=== PATIENT | male | born 1975 | race Caucasian/White ===

== ENCOUNTER → 2018-09-07 | Outpatient (CLI) | payer BC, OTHER ==
[~2018-09-07] MED LIST: NAPR550T PO
== END ==
LOC: RAD 11:31
PROVIDERS: ATTEND Nurse Practitioner Community Health
DX: M48.061 Spinal stenosis, lumbar region without neurogenic claudication (principal); Z53.8 Procedure and treatment not carried out for other reasons

== ENCOUNTER 2020-01-23 15:14 | Emergency (ER) | payer SELFPAY ==
--- NOTE | 2020-01-23 15:25 | ED Chest Pain ---
General Stated Complaint: CHEST PAIN;HIGH BP Source: patient Exam Limitations: no limitations History of Present Illness Date Seen by Provider: Jan 23, 2020 Time Seen by Provider: 15:23 Initial Comments to ER with lower central chest pain described as pressure rated at 8 out of 10 that began one hour ago when sitting down into his recliner. No shortness of breath no diaphoresis no nausea. No personal history of heart disease though he does have hypercholesterolemia and hypertension. His Toprol dose was doubled about 1 month ago but he states it doesn't seem to have helped reduce his blood pressure. He denies fevers chills cough or shortness of breath. He does smoke 1 pack of cigarettes per day. Timing/Duration: changing over time Severity/Quality: moderate Location: central Radiation: no radiation Activities at Onset: none ASA po BOAT HAND: No NTG SL BOAT HAND: No Allergies and Home Medications Allergies Coded Allergies: No Known Drug Allergies (Unverified , 01/23/20) Home Medications Amlodipine Besylate 5 Mg Tablet, 5 MG PO DAILY Prescribed by: BRENNA RIBEIRO on 01/23/20 1748 Naproxen Sodium 550 Mg Tablet, 550 MG PO BID PRN Prescribed by: DOROTHY GASTON on 11/12/10 2331 Patient Home Medication List Home Medication List Reviewed: Yes Review of Systems Review of Systems Constitutional: see HPI EENTM: No Symptoms Reported Respiratory: No Symptoms Reported Cardiovascular: See HPI, Chest Pain Gastrointestinal: No Symptoms Reported Genitourinary: No Symptoms Reported Musculoskeletal: no symptoms reported Skin: no symptoms reported Endocrine: No Symptoms Reported Past Czuifbf-Iamlvy-Bacdig Hx Patient Social History Recent Foreign Travel: No Contact w/Someone Who Travel: No Physical Exam Vital Signs Vital Signs - First Documented 01/23/20 15:16 Temp 35.5 Pulse 104 Resp 20 B/P (MAP) 164/115 (131) Pulse Ox 98 O2 Delivery Room Air Capillary Refill : Height, Weight, BMI Height: '" Weight: lbs. oz. kg; BMI Method: General Appearance: No Apparent Distress, WD/WN, Obese, Other (alert and oriented very pleasant) Neck: Full Range of Motion, Normal Inspection Respiratory: No Accessory Muscle Use, No Respiratory Distress Cardiovascular: Regular Rate, Rhythm Gastrointestinal: Normal Bowel Sounds, Non Tender, Soft Extremity: Normal Capillary Refill, Normal Inspection Neurologic/Psychiatric: Alert, Oriented x3 Skin: Normal Color, Warm/Dry Progress/Results/Core Measures Results/Orders Lab Results Laboratory Tests Test 01/23/20 15:22 01/23/20 17:19 Range/Units White Blood Count 10.5 4.3-11.0 10^3/uL Red Blood Count 4.94 4.30-5.52 10^6/uL Hemoglobin 15.1 13.3-17.7 g/dL Hematocrit 46 40-54 % Mean Corpuscular Volume 92 80-99 fL Mean Corpuscular Hemoglobin 31 25-34 pg Mean Corpuscular Hemoglobin Concent 33 32-36 g/dL Red Cell Distribution Width 14.0 10.0-14.5 % Platelet Count 295 130-400 10^3/uL Mean Platelet Volume 10.3 9.0-12.2 fL Immature Granulocyte % (Auto) 0 % Neutrophils (%) (Auto) 57 42-75 % Lymphocytes (%) (Auto) 33 12-44 % Monocytes (%) (Auto) 8 0-12 % Eosinophils (%) (Auto) 1 0-10 % Basophils (%) (Auto) 1 0-10 % Neutrophils # (Auto) 6.0 1.8-7.8 10^3/uL Lymphocytes # (Auto) 3.5 1.0-4.0 10^3/uL Monocytes # (Auto) 0.9 0.0-1.0 10^3/uL Eosinophils # (Auto) 0.1 0.0-0.3 10^3/uL Basophils # (Auto) 0.1 0.0-0.1 10^3/uL Immature Granulocyte # (Auto) 0.0 0.0-0.1 10^3/uL Prothrombin Time 12.8 12.2-14.7 SEC INR Comment 0.9 0.8-1.4 Activated Partial Thromboplast Time 30 24-35 SEC Sodium Level 141 135-145 MMOL/L Potassium Level 3.5 L 3.6-5.0 MMOL/L Chloride Level 103 98-107 MMOL/L Carbon Dioxide Level 28 21-32 MMOL/L Anion Gap 10 5-14 MMOL/L Blood Urea Nitrogen 14 7-18 MG/DL Creatinine 1.24 0.60-1.30 MG/DL Estimat Glomerular Filtration Rate > 60 BUN/Creatinine Ratio 11 Glucose Level 104 70-105 MG/DL Calcium Level 9.2 8.5-10.1 MG/DL Corrected Calcium 8.8 8.5-10.1 MG/DL Magnesium Level 2.0 1.6-2.4 MG/DL Total Bilirubin 0.4 0.1-1.0 MG/DL Aspartate Amino Transf (AST/SGOT) 28 5-34 U/L Alanine Aminotransferase (ALT/SGPT) 27 0-55 U/L Alkaline Phosphatase 109 40-136 U/L Myoglobin 72.0 10.0-92.0 NG/ML Troponin I < 0.028 < 0.028 <0.028 NG/ML B-Type Natriuretic Peptide < 10.0 <100.0 PG/ML Total Protein 8.1 6.4-8.2 GM/DL Albumin 4.5 3.2-4.5 GM/DL My Orders Orders - BRENNA RIBEIRO APRN Cbc With Automated Diff (01/23/20 15:22) Magnesium (01/23/20 15:22) Chest 1 View, Ap/Pa Only (01/23/20 15:22) Ekg Tracing (01/23/20 15:22) Comprehensive Metabolic Panel (01/23/20 15:22) Myoglobin Serum (01/23/20 15:22) Protime With Inr (01/23/20 15:22) Partial Thromboplastin Time (01/23/20 15:22) O2 (01/23/20 15:22) Monitor-Rhythm Ecg Trace Only (01/23/20 15:22) Ed Iv/Invasive Line Start (01/23/20 15:22) BNP (01/23/20 15:22) Troponin I (01/23/20 15:22) Aspirin Chewable Tablet (Baby Aspirin Ch (01/23/20 15:30) Nitroglycerin 0.4 Mg Btl 25's (Nitrostat (01/23/20 15:30) Lorazepam Injection (Ativan Injection) (01/23/20 15:45) Troponin I (01/23/20 17:22) Medications Given in ED Vital Signs/I&O 01/23/20 01/23/20 01/23/20 15:16 15:16 17:55 Temp 35.5 36.0 Pulse 104 96 Resp 20 17 B/P (MAP) 164/115 (131) 143/100 (131) Pulse Ox 98 99 O2 Delivery Room Air Room Air Room Air Departure Communication (Admissions) 1525-he does have risk factors including obesity hypertension hypercholesterolemia and smoking. Aspirin nitroglycerin ordered. Rates pressure of 10 currently. EKG is without ST segment changes. 1615-Recommended covid test based on cxr results. Refused test, reported to RN that he doesnt believe in it and it might impact his ability to go vote. 1747-Patient has been symptom-free since the administration of lorazepam and continues to be symptom free at this time. We'll discharge to home. He states that his blood pressure has been elevated for the past month despite doubling his Toprol dosage. Impression Primary Impression: Chest pain Qualified Codes: R07.9 - Chest pain, unspecified Additional Impression: High blood pressure Disposition: HOME, SELF-CARE Condition: Stable Departure-Patient Inst. Decision time for Depature: 17:46 Referrals: RALPH ARMANDO (PCP/Family) Primary Care Physician Patient Instructions: Chest Pain Add. Discharge Instructions: 1. Return to ER for any concerns 2. Follow-up with your doctor on Sunday for recheck and further evaluation. Blood pressure medication as directed. Return to ER for any recurrent or worsening symptoms in the meantime. Scripts Amlodipine Besylate (Norvasc) 5 Mg Tablet 5 MG PO DAILY, #20 TAB Prov: BRENNA RIBEIRO APRN 01/23/20 BRENNA RIBEIRO APRN Jan 23, 2020 15:25
[2020-01-23] MEDS: NITROGLYCERIN 0.4 MG SL TABS BTL 25'S SL PRN ×2 (15:28→15:34)
[2020-01-23] MEDS ORDERED: ASPIRIN 81 MG CHEW (CHILDREN'S ASA) PO ONE (15:30)
--- NOTE | 2020-01-23 15:40 | NUR ---
1528 Nitro #1 adm. Initial BP 138/77 Pain 8/10 1533 BP 120/75 Pain 5/10 Nitro #2 adm. 1539 BP 114/85 Pain 0/10
--- NOTE | 2020-01-23 15:43 | Diagnostic Imaging Report ---
INDICATION: Chest pain. EXAMINATION: Single view of the chest was obtained. FINDINGS: No focal consolidation found. There is some prominence of the lung markings which may be chronic, Heart size is upper limits. No effusion or pneumothorax. IMPRESSION: Interstitial opacities may be chronic, otherwise negative. Dictated by: Dictated on workstation # [id number]
[2020-01-23] MEDS ORDERED: LORazepam INJ 2 MG/ML (ATIVAN) VIAL IVP PRN (15:45)
[2020-01-23 15:57] LABS: ALBUMIN 4.5 GM/DL (3.2-4.5); CHLORIDE 103 MMOL/L (98-107); INR 0.9 (0.8-1.4); POTASSIUM 3.5 MMOL/L (3.6-5.0); PROTHROMBIN TIME PATIENT 12.8 SEC (12.2-14.7); SODIUM 141 MMOL/L (135-145)
[2020-01-23 15:59] LABS: CALCIUM 9.2 MG/DL (8.5-10.1)
[2020-01-23 16:00] LABS: GLUCOSE 104 MG/DL (70-105); TOTAL PROTEIN 8.1 GM/DL (6.4-8.2)
[2020-01-23 16:01] LABS: BILIRUBIN,TOTAL 0.4 MG/DL (0.1-1.0); CARBON DIOXIDE 28 MMOL/L (21-32)
[2020-01-23 16:02] LABS: BASOPHILS # (AUTO) 0.1 10^3/uL (0.0-0.1); BASOPHILS % (AUTO) 1 % (0-10); EOSINOPHILS # (AUTO) 0.1 10^3/uL (0.0-0.3); EOSINOPHILS % (AUTO) 1 % (0-10); HEMATOCRIT 46 % (40-54); HEMOGLOBIN 15.1 g/dL (13.3-17.7); LYMPHOCYTES # (AUTO) 3.5 10^3/uL (1.0-4.0); LYMPHOCYTES % (AUTO) 33 % (12-44); MEAN CORPUSCULAR HEMOGLOBIN 31 pg (25-34); MEAN CORPUSCULAR HGB CONC 33 g/dL (32-36); MEAN CORPUSCULAR VOLUME 92 fL (80-99); MEAN PLATELET VOLUME 10.3 fL (9.0-12.2); MONOCYTES # (AUTO) 0.9 10^3/uL (0.0-1.0); MONOCYTES % (AUTO) 8 % (0-12); NEUTROPHILS % (AUTO) 57 % (42-75); PLATELET COUNT 295 10^3/uL (130-400); WHITE BLOOD COUNT 10.5 10^3/uL (4.3-11.0)
[2020-01-23 16:03] LABS: ALKALINE PHOSPHATASE 109 U/L (40-136); CREATININE SERUM 1.24 MG/DL (0.60-1.30); GFR ESTIMATED > 60
[2020-01-23 16:04] LABS: BUN/CREATININE RATIO 11
[2020-01-23 16:06] LABS: ALANINE AMINOTRANSFERASE 27 U/L (0-55)
--- NOTE | 2020-01-23 16:30 | NUR ---
Pt refused COVID-19 swab stating, "I'm sorry, I just don't want to be swabbed." Provider notified.
[2020-01-23] MEDS ORDERED: AMLO5TAB4 PO (17:48)
[2020-01-23 17:55] VITALS: BP 143/100
== END 2020-01-23 17:55 | disposition home or self-care (01) ==
LOC: EDUNIT# 15:14 → ER 15:15
DX: R07.9 Chest pain, unspecified (principal); I10 Essential (primary) hypertension; E66.9 Obesity, unspecified; F17.210 Nicotine dependence, cigarettes, uncomplicated
CPT/HCPCS: 36415; 71045; 80053; 83735; 83874; 83880; 84484; 85025; 85610; 85730; 93005; 93041

== ENCOUNTER → 2020-12-09 | Outpatient (CLI) | payer BC ==
[~2020-12-09] MED LIST changes: +AMLO5TAB4 PO
--- NOTE | 2020-12-09 11:00 | Diagnostic Imaging Report ---
INDICATION: Neck pain, right upper extremity radiculopathy. Neck is held in mild flexion. There is likely some slight positional anterolisthesis of C4 on C5 of 1 mm. There is lower cervical spondylosis with disc space narrowing, endplate sclerosis and osteophytes greatest at C5-C6 and C6-C7 levels. Odontoid intact. No fracture identified. IMPRESSION: Lower cervical spondylosis. Neck held in flexion likely accounts for trace anterolisthesis of C4 on 5. No acute-appearing abnormality. Dictated by: Dictated on workstation # [id number]
--- NOTE | 2020-12-09 11:25 | Diagnostic Imaging Report ---
INDICATION: Back pain EXAM: Thoracic spine AP and lateral views of the thoracic spine show normal vertebral body height and alignment. There is mild degenerative disc changes in the thoracic spine. IMPRESSION: Minimal degenerative changes in the mid thoracic spine. No acute abnormality is seen. Dictated by: Dictated on workstation # [id number]
== END ==
LOC: RAD 10:12
PROVIDERS: ATTEND Family Medicine
DX: M47.23 Other spondylosis with radiculopathy, cervicothoracic region (principal); M43.12 Spondylolisthesis, cervical region
CPT/HCPCS: 72040; 72072

== ENCOUNTER 2021-01-05 08:36 | Outpatient (RCR) | payer BC | END 2021-03-13 | disposition home or self-care (01) | PROVIDERS: ATTEND Family Medicine | DX: M54.12 Radiculopathy, cervical region (principal) ==

== ENCOUNTER → 2021-08-25 | Outpatient (CLI) | payer BC | LOC: CARD 14:27 | PROVIDERS: ATTEND Family Medicine | DX: I51.7 Cardiomegaly (principal) | CPT/HCPCS: 93306 ==

== ENCOUNTER → 2021-10-10 | Outpatient (CLI) | payer BC ==
[2021-10-10 13:46] LABS: POTASSIUM 3.8 MMOL/L (3.6-5.0)
[2021-10-10 13:47] LABS: CALCIUM 9.4 MG/DL (8.5-10.1)
[2021-10-10 13:51] LABS: CREATININE SERUM 1.13 MG/DL (0.60-1.30)
== END ==
LOC: LAB 12:44
PROVIDERS: ATTEND Internal Medicine Cardiovascular Disease
DX: Z01.810 Encounter for preprocedural cardiovascular examination (principal); Z01.812 Encounter for preprocedural laboratory examination; I42.9 Cardiomyopathy, unspecified; I10 Essential (primary) hypertension; E78.2 Mixed hyperlipidemia; K21.9 Gastro-esophageal reflux disease without esophagitis; E66.9 Obesity, unspecified
CPT/HCPCS: 36415; 80048

== ENCOUNTER → 2021-11-17 | Outpatient (CLI) | payer BC ==
--- NOTE | 2021-11-17 13:20 | Diagnostic Imaging Report ---
INDICATION: Right knee pain. TIME OF EXAM: 9:56 AM FINDINGS: 3 views right knee were obtained. There is mild medial compartmental joint space narrowing. Lateral compartment and patellofemoral compartments are well-maintained. The articular surfaces are smooth. No fracture, dislocation or effusion is seen. IMPRESSION: Mild medial compartmental joint space narrowing. The study is otherwise unremarkable. Dictated by: Dictated on workstation # [id number]
== END ==
LOC: ORTHO 09:43
PROVIDERS: ATTEND Orthopaedic Surgery
DX: M25.561 Pain in right knee (principal); M25.861 Other specified joint disorders, right knee
CPT/HCPCS: 73562; G0463; 99203

== ENCOUNTER → 2021-12-01 | Outpatient (CLI) | payer BC ==
--- NOTE | 2021-12-01 13:20 | Diagnostic Imaging Report ---
Indication: Follow-up ortho assessment COMPARISON: None available. TECHNIQUE: 3 radiographs of the right shoulder dated 12/01/2021. FINDINGS: The acromioclavicular joint is unremarkable. No acute fracture or dislocation. Focal concavity is noted involving the superolateral aspect of the humeral head. Glenohumeral relationship is well-maintained. No suspicious radiopaque foreign body. IMPRESSION: Concavity involving the superior lateral humeral head is felt related to a Hill-Sachs deformity, likely from prior dislocation of the glenohumeral joint. No current dislocation or additional fracture identified on this examination. Dictated by: Dictated on workstation # [id number]
== END ==
LOC: ORTHO 09:24
PROVIDERS: ATTEND Orthopaedic Surgery
DX: M75.51 Bursitis of right shoulder (principal); I10 Essential (primary) hypertension; K21.9 Gastro-esophageal reflux disease without esophagitis; E78.2 Mixed hyperlipidemia; E66.9 Obesity, unspecified
CPT/HCPCS: 20610; 73030; G0463

== ENCOUNTER → 2022-01-12 | Outpatient (CLI) | payer BC ==
[~2022-01-12] MED LIST changes: +AMLO-250 PO; +ASPI-1238 PO; +ATOR40TA PO; +BACL10TA PO; +GABA300T24 PO; +LOSA100T57 PO; +LOSA50TA63 PO; +MELO15TA39 PO; +MTP100TCR PO; +NAPR-1071 PO; +NAPR-915 PO; +OMEP20TA56 PO; +PANT40TA52 PO; +TICA90TA PO
== END ==
LOC: ORTHO 02:15
PROVIDERS: ATTEND Orthopaedic Surgery
DX: I42.9 Cardiomyopathy, unspecified (principal); I25.10 Atherosclerotic heart disease of native coronary artery without angina pectoris; I10 Essential (primary) hypertension; E78.5 Hyperlipidemia, unspecified; K21.9 Gastro-esophageal reflux disease without esophagitis; E66.9 Obesity, unspecified; Z86.79 Personal history of other diseases of the circulatory system
CPT/HCPCS: 99213

== ENCOUNTER 2022-01-25 13:21 | Emergency (ER) | payer BC ==
[~2022-01-25] VITALS: Ht 180.3 cm; Wt 104.3 kg
[~2022-01-25 13:21] MED LIST changes: -AMLO-250 PO; -ASPI-1238 PO; -ATOR40TA PO; -BACL10TA PO; -GABA300T24 PO; -LOSA100T57 PO; -LOSA50TA63 PO; -MELO15TA39 PO; -MTP100TCR PO; -NAPR-1071 PO; -NAPR-915 PO; -OMEP20TA56 PO; -PANT40TA52 PO; -TICA90TA PO
--- NOTE | 2022-01-25 13:44 | ED Integumentary General ---
General Chief Complaint: Skin/Wound Problems Stated Complaint: RT ARM PAIN Nursing Triage Note: PT AMB TO [facility] 6 WITH COMPLAINT OF REDNESS, SWELLING, AND PAIN TO RIGHT INNER FOREARM. STATES HE DONATED PLASMA LAST WEEK. Source: patient Exam Limitations: no limitations History of Present Illness Date Seen by Provider: Jan 25, 2022 Time Seen by Provider: 13:22 Initial Comments This is a well-appearing 46-year-old male who presented to the ER via POV with spouse for complaints of redness and swelling of his right inner forearm. He states that he donates plasma twice a week, his last donation was 1 week ago Sunday. Over the last few days he has had increased redness and swelling to the area. This is medial to his IV site where he did the transfusion. Denies fever, chills, nausea, vomiting, abdominal pain. No history of DVTs or coagulation disorders. Allergies and Home Medications Allergies Coded Allergies: No Known Drug Allergies (Unverified , 01/23/20) Patient Home Medication List Amlodipine Besylate (Norvasc) 5 Mg Tablet, 5 MG PO DAILY Prescribed by: BRENNA RIBEIRO on 01/23/20 1748 Naproxen Sodium (Anaprox Ds) 550 Mg Tablet, 550 MG PO BID PRN Prescribed by: DOROTHY GASTON on 11/12/10 2331 Past Aglctpn-Hubxoo-Uhknnt Hx Patient Social History Tobacco Use?: No Use of E-Cig and/or Vaping dev: No Substance use?: No Alcohol Use?: No Pt feels they are or have been: No Seasonal Allergies Seasonal Allergies: No Past Medical History Surgeries: Yes (Ear, ) Orthopedic Respiratory: No Cardiac: Yes High Cholesterol, Hypertension Neurological: No Genitourinary: No Gastrointestinal: No Musculoskeletal: No Endocrine: No HEENT: No Cancer: No Psychosocial: No Integumentary: No Physical Exam Vital Signs Vital Signs - First Documented 01/25/22 13:26 Temp 36.8 Pulse 114 Resp 20 B/P (MAP) 130/103 (112) Pulse Ox 97 O2 Delivery Room Air Capillary Refill : Less Than 3 Seconds Progress/Results/Core Measures Results/Orders Lab Results Laboratory Tests Test 01/25/22 13:42 Range/Units White Blood Count 10.0 4.3-11.0 10^3/uL Red Blood Count 5.37 4.30-5.52 10^6/uL Hemoglobin 16.3 13.3-17.7 g/dL Hematocrit 49 40-54 % Mean Corpuscular Volume 92 80-99 fL Mean Corpuscular Hemoglobin 30 25-34 pg Mean Corpuscular Hemoglobin Concent 33 32-36 g/dL Red Cell Distribution Width 15.6 H 10.0-14.5 % Platelet Count 312 130-400 10^3/uL Mean Platelet Volume 9.6 9.0-12.2 fL Immature Granulocyte % (Auto) 0 % Neutrophils (%) (Auto) 57 42-75 % Lymphocytes (%) (Auto) 34 12-44 % Monocytes (%) (Auto) 8 0-12 % Eosinophils (%) (Auto) 0 0-10 % Basophils (%) (Auto) 1 0-10 % Neutrophils # (Auto) 5.7 1.8-7.8 10^3/uL Lymphocytes # (Auto) 3.4 1.0-4.0 10^3/uL Monocytes # (Auto) 0.8 0.0-1.0 10^3/uL Eosinophils # (Auto) 0.0 0.0-0.3 10^3/uL Basophils # (Auto) 0.1 0.0-0.1 10^3/uL Immature Granulocyte # (Auto) 0.0 0.0-0.1 10^3/uL Sodium Level 143 135-145 MMOL/L Potassium Level 3.6 3.6-5.0 MMOL/L Chloride Level 105 98-107 MMOL/L Carbon Dioxide Level 29 21-32 MMOL/L Anion Gap 9 5-14 MMOL/L Blood Urea Nitrogen 8 7-18 MG/DL Creatinine 1.16 0.60-1.30 MG/DL Estimat Glomerular Filtration Rate 78 BUN/Creatinine Ratio 7 Glucose Level 89 70-105 MG/DL Calcium Level 9.5 8.5-10.1 MG/DL Corrected Calcium 9.3 8.5-10.1 MG/DL Total Bilirubin 0.5 0.1-1.0 MG/DL Aspartate Amino Transf (AST/SGOT) 32 5-34 U/L Alanine Aminotransferase (ALT/SGPT) 31 0-55 U/L Alkaline Phosphatase 99 40-136 U/L C-Reactive Protein High Sensitivity 1.54 H 0.00-0.50 MG/DL Total Protein 7.9 6.4-8.2 GM/DL Albumin 4.3 3.2-4.5 GM/DL My Orders Orders - DIANDRA HERRERA RN ORTHOPEDIC Ed Iv/Invasive Line Start (01/25/22 13:40) Cbc With Automated Diff (01/25/22 13:40) Comprehensive Metabolic Panel (01/25/22 13:40) Hs C Reactive Protein (01/25/22 13:40) Us Venous Upper Ext Rt (01/25/22 13:40) Ketorolac Injection (Toradol Injection) (01/25/22 13:45) Medications Given in ED Current Medications Medications Dose Ordered Sig/Christiano Route Start Time Stop Time Status Last Admin Dose Admin Ketorolac Tromethamine 30 mg ONCE ONCE IVP 01/25/22 13:45 01/25/22 13:46 DC 01/25/22 13:47 30 MG Vital Signs/I&O 01/25/22 13:26 Temp 36.8 Pulse 114 Resp 20 B/P (MAP) 130/103 (112) Pulse Ox 97 O2 Delivery Room Air Blood Pressure Mean: 112 Departure Impression Primary Impression: Superficial venous thrombosis of right upper extremity Disposition: HOME, SELF-CARE Condition: Improved Departure-Patient Inst. Referrals: MARIA ANTONIA OROZCO MD (PCP) Primary Care Physician JUAN CARLOS BRAVO DO (Family) Primary Care Physician Patient Instructions: Superficial Phlebitis Add. Discharge Instructions: Plan: 1. Have close follow up with your primary care provider. Call to schedule. 2. May take Naproxen 500mg by mouth twice a day, take with food. 3. May apply heat 20 minutes at a time for comfort, pain, and swelling. 4. Return to ER for any new, concerning, or worsening symptoms. All discharge instructions reviewed with patient and/or family. Voiced understanding. DIANDRA HERRERA APRN Jan 25, 2022 13:44
[2022-01-25] MEDS ORDERED: KETOROLAC 30 MG/ML VIAL IVP ONE (13:45)
[2022-01-25 13:49] LABS: BASOPHILS # (AUTO) 0.1 10^3/uL (0.0-0.1); BASOPHILS % (AUTO) 1 % (0-10); EOSINOPHILS % (AUTO) 0 % (0-10); HEMATOCRIT 49 % (40-54); HEMOGLOBIN 16.3 g/dL (13.3-17.7); LYMPHOCYTES # (AUTO) 3.4 10^3/uL (1.0-4.0); LYMPHOCYTES % (AUTO) 34 % (12-44); MEAN CORPUSCULAR HEMOGLOBIN 30 pg (25-34); MEAN CORPUSCULAR HGB CONC 33 g/dL (32-36); MEAN CORPUSCULAR VOLUME 92 fL (80-99); MEAN PLATELET VOLUME 9.6 fL (9.0-12.2); MONOCYTES # (AUTO) 0.8 10^3/uL (0.0-1.0); MONOCYTES % (AUTO) 8 % (0-12); NEUTROPHILS # (AUTO) 5.7 10^3/uL (1.8-7.8); NEUTROPHILS % (AUTO) 57 % (42-75); PLATELET COUNT 312 10^3/uL (130-400)
[2022-01-25 14:13] LABS: ALBUMIN 4.3 GM/DL (3.2-4.5); POTASSIUM 3.6 MMOL/L (3.6-5.0)
[2022-01-25 14:14] LABS: CALCIUM 9.5 MG/DL (8.5-10.1)
[2022-01-25 14:16] LABS: TOTAL PROTEIN 7.9 GM/DL (6.4-8.2)
[2022-01-25 14:17] LABS: BILIRUBIN,TOTAL 0.5 MG/DL (0.1-1.0)
[2022-01-25 14:19] LABS: CREATININE SERUM 1.16 MG/DL (0.60-1.30)
[2022-01-25] MEDS ORDERED: NAPR-1071 PO (14:24)
--- NOTE | 2022-01-25 14:31 | Diagnostic Imaging Report ---
US VENOUS UPPER EXT RT INDICATION: Swelling and erythema in the medial forearm COMPARISON: None available. TECHNIQUE: Grayscale, color Doppler and spectral Doppler imaging of the right upper extremity venous structures was performed. COMPARISON: None available. FINDINGS: The right internal jugular, axillary, brachial, radial and ulnar veins are patent without evidence of DVT. All of the evaluated deep venous structures demonstrate normal compressibility and waveform augmentation where applicable. The superficial basilic vein is occluded in the distal upper arm and proximal forearm. IMPRESSION: Superficial thrombus within the right basilic vein extending from the distal upper arm to the proximal forearm. 2. No deep venous thrombosis. Dictated by: Dictated on workstation # [id number]
[2022-01-25 15:43] VITALS: BP 132/98
== END 2022-01-25 15:43 | disposition home or self-care (01) ==
LOC: EDUNIT# 13:21 → ER 13:24
DX: I82.B11 Acute embolism and thrombosis of right subclavian vein (principal)
CPT/HCPCS: 36415; 80053; 85025; 86141

== ENCOUNTER → 2022-01-30 | Outpatient (RCR) | payer BC ==
[~2022-01-30] MED LIST changes: +AMLO-250 PO; +ASPI-1238 PO; +ATOR40TA PO; +BACL10TA PO; +GABA300T24 PO; +LOSA100T57 PO; +LOSA50TA63 PO; +MELO15TA39 PO; +MTP100TCR PO; +NAPR-1071 PO; +NAPR-915 PO; +OMEP20TA56 PO; +PANT40TA52 PO; +TICA90TA PO
== END | disposition home or self-care (01) ==
PROVIDERS: ATTEND Neurological Surgery
DX: M54.50 Low back pain, unspecified (principal); G89.29 Other chronic pain; I10 Essential (primary) hypertension

== ENCOUNTER 2022-02-05 19:50 | Observation (INO) | payer BC ==
[~2022-02-05] VITALS: Ht 180 cm; Wt 111.3 kg
[~2022-02-05 19:50] MED LIST changes: -AMLO-250 PO; -ASPI-1238 PO; -ATOR40TA PO; -BACL10TA PO; -GABA300T24 PO; -LOSA100T57 PO; -LOSA50TA63 PO; -MELO15TA39 PO; -MTP100TCR PO; -NAPR-915 PO; -OMEP20TA56 PO; -PANT40TA52 PO; -TICA90TA PO
[2022-02-05 20:40] LABS: BASOPHILS # (AUTO) 0.1 10^3/uL (0.0-0.1); BASOPHILS % (AUTO) 1 % (0-10); EOSINOPHILS # (AUTO) 0.3 10^3/uL (0.0-0.3); EOSINOPHILS % (AUTO) 2 % (0-10); HEMATOCRIT 47 % (40-54); HEMOGLOBIN 15.2 g/dL (13.3-17.7); LYMPHOCYTES % (AUTO) 34 % (12-44); MEAN CORPUSCULAR HEMOGLOBIN 31 pg (25-34); MEAN CORPUSCULAR HGB CONC 33 g/dL (32-36); MEAN CORPUSCULAR VOLUME 94 fL (80-99); MEAN PLATELET VOLUME 10.3 fL (9.0-12.2); MONOCYTES # (AUTO) 0.6 10^3/uL (0.0-1.0); MONOCYTES % (AUTO) 5 % (0-12); NEUTROPHILS # (AUTO) 6.7 10^3/uL (1.8-7.8); NEUTROPHILS % (AUTO) 58 % (42-75); PLATELET COUNT 263 10^3/uL (130-400); WHITE BLOOD COUNT 11.7 10^3/uL (4.3-11.0)
[2022-02-05] MEDS ORDERED: ASPIRIN 81 MG CHEW (CHILDREN'S ASA) PO ONE (20:45)
[2022-02-05] MEDS ORDERED: NITROGLYCERIN 0.4 MG SL TABS BTL 25'S SL PRN (20:45)
[2022-02-05 20:46] LABS: ALBUMIN 3.8 GM/DL (3.2-4.5); POTASSIUM 3.6 MMOL/L (3.6-5.0)
[2022-02-05 20:47] LABS: INR 0.9 (0.8-1.4); PROTHROMBIN TIME PATIENT 12.1 SEC (12.2-14.7)
[2022-02-05 20:48] LABS: CALCIUM 8.8 MG/DL (8.5-10.1)
[2022-02-05 20:51] LABS: BILIRUBIN,TOTAL 0.2 MG/DL (0.1-1.0)
[2022-02-05 20:52] LABS: CREATININE SERUM 1.14 MG/DL (0.60-1.30)
[2022-02-05 20:55] LABS: MAGNESIUM 1.7 MG/DL (1.6-2.4)
--- NOTE | 2022-02-05 20:55 | Diagnostic Imaging Report ---
INDICATION: Chest pain. EXAMINATION: AP view of the chest was obtained. COMPARISON: Study of 01/23/2020. FINDINGS: There is cardiomegaly and mild pulmonary venous congestion. There has been increase in airspace disease in the perihilar regions, bilaterally. No pneumothorax is identified. There is no significant pleural fluid. IMPRESSION: Increasing bilateral pulmonary densities likely represent pulmonary edema on the basis of congestive heart failure. Dictated by: Dictated on workstation # [id number]
--- NOTE | 2022-02-05 21:56 | ED Chest Pain ---
General Chief Complaint: Chest Pain Stated Complaint: CHEST PAIN Nursing Triage Note: PT AMB TO RM 2 WITH C/O CP X1 HOUR, ELEVATED BP TH AT HE HAS BEEN MONITORING AT HOME Source: patient Exam Limitations: no limitations History of Present Illness Date Seen by Provider: Feb 05, 2022 Time Seen by Provider: 20:32 Initial Comments Here with report of central chest pain that started about an hour ago. He was not necessarily doing anything at the time. States that it central and nonradiating and moderate in intensity with it still occurring now but to a much lesser extent. Did take his blood pressure at the time and noted it to be 180 systolic. Notes that he has had a couple episodes of dizziness recently but otherwise denies nausea, vomiting, weakness or breathing problems. Follows with Dr. Gupta and Dr. Luis. 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) NTG SL LOOPING MACHINE OPERATOR: No Associated Symptoms: No abdominal pain, No back pain; dizziness; No heartburn, No nausea/vomiting, No shortness of breath, No weakness Allergies and Home Medications Allergies Coded Allergies: No Known Drug Allergies (Unverified , 01/23/20) Patient Home Medication List Home Medication List Reviewed: Yes Amlodipine Besylate (Norvasc) 5 Mg Tablet, 5 MG PO DAILY Prescribed by: BRENNA RIBEIRO on 01/23/20 1748 Naproxen (Naprosyn) 500 Mg Tablet, 500 MG PO BID Prescribed by: DIANDRA HERRERA on 01/25/22 1701 Naproxen Sodium (Anaprox Ds) 550 Mg Tablet, 550 MG PO BID PRN Prescribed by: DOROTHY GASTON on 11/12/10 2331 Review of Systems Review of Systems Constitutional: see HPI; No chills, No fever EENTM: No Nose Congestion, No Throat Pain Respiratory: Denies Cough, Denies Shortness of Air Cardiovascular: Denies Edema Gastrointestinal: Denies Nausea, Denies Vomiting Genitourinary: No Symptoms Reported Musculoskeletal: No back pain, No muscle pain Skin: No change in color, No lesions, No rash Psychiatric/Neurological: No Symptoms Reported All Other Systems Reviewed Negative Unless Noted: Yes Past Wwspxkn-Wkcctq-Zcebpc Hx Patient Social History Tobacco Use?: Yes Tobacco type used: Cigarettes Smoking Status: Current Everyday Smoker Substance use?: No Alcohol Use?: Yes Alcohol Frequency: Once in a while Pt feels they are or have been: No Immunizations Up To Date Influenza Vaccine Up-to-Date: No; Not Current First/Initial COVID19 Vaccinat: YES Second COVID19 Vaccination Dar: YES Seasonal Allergies Seasonal Allergies: No Past Medical History Surgery/Hospitalization HX: HTN Surgeries: Yes (Ear, ) Orthopedic Respiratory: No Cardiac: Yes High Cholesterol, Hypertension Neurological: No Genitourinary: No Gastrointestinal: No Musculoskeletal: No Endocrine: No HEENT: No Cancer: No Psychosocial: No Integumentary: No Family Medical History Reviewed Nursing Family Hx Physical Exam Vital Signs Vital Signs - First Documented 02/05/22 20:02 Pulse 73 Resp 18 B/P (MAP) 170/114 (132) Capillary Refill : Less Than 3 Seconds Height, Weight, BMI Height: '" Weight: lbs. oz. kg; 32.00 BMI Method: General Appearance: No Apparent Distress, WD/WN HEENT: PERRL/EOMI, Pharynx Normal Neck: Non Tender, Supple Respiratory: Lungs Clear, Normal Breath Sounds Cardiovascular: Regular Rate, Rhythm, No Murmur Gastrointestinal: Non Tender, Soft Extremity: Normal Range of Motion, Non Tender Neurologic/Psychiatric: Alert, Oriented x3 Skin: Normal Color, Warm/Dry Progress/Results/Core Measures Results/Orders Lab Results Laboratory Tests Test 02/05/22 20:02 Range/Units White Blood Count 11.7 H 4.3-11.0 10^3/uL Red Blood Count 4.98 4.30-5.52 10^6/uL Hemoglobin 15.2 13.3-17.7 g/dL Hematocrit 47 40-54 % Mean Corpuscular Volume 94 80-99 fL Mean Corpuscular Hemoglobin 31 25-34 pg Mean Corpuscular Hemoglobin Concent 33 32-36 g/dL Red Cell Distribution Width 15.9 H 10.0-14.5 % Platelet Count 263 130-400 10^3/uL Mean Platelet Volume 10.3 9.0-12.2 fL Immature Granulocyte % (Auto) 0 % Neutrophils (%) (Auto) 58 42-75 % Lymphocytes (%) (Auto) 34 12-44 % Monocytes (%) (Auto) 5 0-12 % Eosinophils (%) (Auto) 2 0-10 % Basophils (%) (Auto) 1 0-10 % Neutrophils # (Auto) 6.7 1.8-7.8 10^3/uL Lymphocytes # (Auto) 4.0 1.0-4.0 10^3/uL Monocytes # (Auto) 0.6 0.0-1.0 10^3/uL Eosinophils # (Auto) 0.3 0.0-0.3 10^3/uL Basophils # (Auto) 0.1 0.0-0.1 10^3/uL Immature Granulocyte # (Auto) 0.0 0.0-0.1 10^3/uL Prothrombin Time 12.1 L 12.2-14.7 SEC INR Comment 0.9 0.8-1.4 Activated Partial Thromboplast Time 29 24-35 SEC Sodium Level 141 135-145 MMOL/L Potassium Level 3.6 3.6-5.0 MMOL/L Chloride Level 107 98-107 MMOL/L Carbon Dioxide Level 23 21-32 MMOL/L Anion Gap 11 5-14 MMOL/L Blood Urea Nitrogen 9 7-18 MG/DL Creatinine 1.14 0.60-1.30 MG/DL Estimat Glomerular Filtration Rate 79 BUN/Creatinine Ratio 8 Glucose Level 113 H 70-105 MG/DL Calcium Level 8.8 8.5-10.1 MG/DL Corrected Calcium 9.0 8.5-10.1 MG/DL Magnesium Level 1.7 1.6-2.4 MG/DL Total Bilirubin 0.2 0.1-1.0 MG/DL Aspartate Amino Transf (AST/SGOT) 41 H 5-34 U/L Alanine Aminotransferase (ALT/SGPT) 46 0-55 U/L Alkaline Phosphatase 87 40-136 U/L Myoglobin 35.7 10.0-92.0 NG/ML Troponin I 0.204 H <0.028 NG/ML Total Protein 7.0 6.4-8.2 GM/DL Albumin 3.8 3.2-4.5 GM/DL My Orders Orders - KATHRYN CRISTINA MD Ekg Tracing (02/05/22 19:59) Cbc With Automated Diff (02/05/22 20:31) Magnesium (02/05/22 20:31) Chest 1 View, Ap/Pa Only (02/05/22 20:31) Ekg Tracing (02/05/22 20:31) Comprehensive Metabolic Panel (02/05/22 20:31) Myoglobin Serum (02/05/22 20:31) Protime With Inr (02/05/22:) Partial Thromboplastin Time (02/05/22 20:) O2 (02/05/22 20:31) Monitor-Rhythm Ecg Trace Only (02/05/22 20:) Lipid Panel (02/06/22 06:00) Ed Iv/Invasive Line Start (02/05/22 20:31) Troponin I [place] (02/05/22 20:31) Nitroglycerin 0.4 Mg Btl 25's (Nitrostat (02/05/22 20:45) Aspirin Chewable Tablet (Baby Aspirin Ch (02/05/22 20:45) Enoxaparin Injection (Lovenox Injection) (02/05/22 22:00) Medications Given in ED Current Medications Medications Dose Ordered Sig/Christiano Route Start Time Stop Time Status Last Admin Dose Admin Aspirin 324 mg ONCE ONCE PO 02/05/22 20:45 02/05/22 20:46 DC 02/05/22 20:51 324 MG Enoxaparin Sodium 100 mg ONCE ONCE SC 02/05/22 22:00 02/05/22 22:01 DC 02/05/22 22:59 100 MG Nitroglycerin 0.4 mg UD PRN SL 02/05/22 20:45 02/06/22 00:59 DC 02/05/22 20:53 0.4 MG Vital Signs/I&O 02/05/22 20:02 Pulse 73 Resp 18 B/P (MAP) 170/114 (132) Blood Pressure Mean: 132 Progress Progress Note : Progress Note Seen and evaluated. Chest pain protocol initiated. ASA 324 mg p.o. ordered. Nitroglycerin sublingual ordered. Monitor patient. 9: I did discuss the case with Dr. Recio earlier as troponin is elevated at 0.204. He is chest pain- free after 1 nitro. Given his history and elevated troponin with normal EKG, we will go ahead and admit him to cardiac stepdown with patient n.p.o. after midnight. Dr. Recio is recommending Lovenox 1 mg/kg subcu now and every 12 hours. We will go ahead do the first dose now. I did discuss with Dr. GUPTA, patient's primary care physician and she accepts patient for admission, observation status with Dr. Recio/Dr. Luis to follow. Patient and family agree with plan. Initial ECG Impression Date: Feb 05, 2022 Initial ECG Impression Time: 20:04 Initial ECG Rate: 73 Initial ECG Rhythm: Normal Sinus Comment Sinus rhythm with normal axis. No evidence of ST elevation UT. Inverted T waves inferior leads. Interpreted by me. Diagnostic Imaging Diagonstic Imaging: Xray Plain Films/CT/US/NM/MRI: chest Comments [facility], [place] NAME: [facility] REC#: [id number] PT STATUS: REG ER : 1975 PHYSICIAN: KATHRYN CRISTINA MD ADMIT DATE: 02/05/22/ER Draft Date of Exam:02/05/22 CHEST 1 VIEW, AP/PA ONLY INDICATION: Chest pain. EXAMINATION: AP view of the chest was obtained. COMPARISON: Study of 01/23/2020. FINDINGS: There is cardiomegaly and mild pulmonary venous congestion. There has been increase in airspace disease in the perihilar regions, bilaterally. No pneumothorax is identified. There is no significant pleural fluid. IMPRESSION: Increasing bilateral pulmonary densities likely represent pulmonary edema on the basis of congestive heart failure. Dictated on workstation # [id number] Dict: 02/05/222050 Trans: 02/05/222053 [facility] [id number] Interpreted by: YAMILKA RODRIGUEZ MD Electronically signed by: Departure Communication (Admissions) Time/Spoke to Admitting Phy: 21:49 Time/Spoke to Consulting Phy: 21:46 Impression Primary Impression: Non-ST elevation UT (NSTEMI) Disposition: ADMITTED INPATIENT Condition: Stable Admissions Decision to Admit Reason: Admit from ER (General) Decision to Admit/Date: Feb 05, 2022 Time/Decision to Admit Time: 21:46 Departure-Patient Inst. Referrals: JUAN CARLOS GUPTA DO (PCP/Family) Primary Care Physician KATHRYN CRISTINA MD Feb 05, 2022 21:56
[2022-02-05] MEDS ORDERED: ENOXAPARIN 100 MG/1 ML (LOVENOX) SYR SC ONE (22:00)
[2022-02-06] VITALS (20 sets, daily range): BP systolic 108–160; BP diastolic 76–101
[2022-02-06] MEDS: NS IV 1000 ML 1,000 ML IV SCH ×4 (01:00→22:01)
[2022-02-06] MEDS ORDERED: NITROGLYCERIN 0.4 MG SL TABS BTL 25'S SL PRN (01:00)
[2022-02-06] MEDS ORDERED: ONDANSETRON 4 MG/2 ML (SDV) Z0FRAN IVP PRN (01:00)
[2022-02-06 05:33] LABS: CHOLESTEROL 247 MG/DL (< 200); HDL CHOLESTEROL 42 MG/DL (40-60); TRIGLYCERIDES 376 MG/DL (<150); VLDL CHOLESTEROL 75 MG/DL (5-40)
[2022-02-06] MEDS ORDERED: LIDOCAINE 1% INJ 30 ML (XYLOCAINE) VIAL ONE (08:11)
[2022-02-06] MEDS ORDERED: HEParin (CATH LAB) 2,000 ML IV ONE (08:11)
[2022-02-06] MEDS ORDERED: fentaNYL INJ 100 MCG/2 ML AMP ONE (08:18)
[2022-02-06] MEDS ORDERED: VERAPAMIL 5 MG/2 ML (CALAN) VIAL IV ONE (08:18)
[2022-02-06] MEDS ORDERED: MIDAZOLAM 2 MG/2 ML (VERSED) VIAL ONE (08:18)
[2022-02-06] MEDS ORDERED: HEParin 1000 UNIT/ML (10ML VIAL) FOR BOLUS ONE (08:19)
[2022-02-06] MEDS ORDERED: NITRO DRIP 25000 MCG/D5W 250 ML IV ONE (08:19)
[2022-02-06] MEDS ORDERED: ASPIRIN E.C. 81 MG (ECOTRIN) TAB PO SCH (09:00)
--- NOTE | 2022-02-06 09:37 | Cardiac Procedure Note-CS/ASA ---
Pre-Procedure Note Pre-Op Procedure Note Date of Available H&P: Feb 06, 2022 Date H&P Reviewed: Feb 06, 2022 Time H&P Reviewed: 09:37 History & Physical: H&P Reviewed, Patient Examed, No changes noted Pre-Operative Diagnosis: NSTMI Conscious Sedation Pre-Proced Time 09:37 ASA Score 3 For ASA 3 and 4: Consider anesthesia and medical clearance. Also, for patients with a history of failed moderate sedation consider anesthesia. Airway Lungs Heart ASA score ASA 1: a normal healthy patient ASA 2: a patient with a mild systemic disease (mid diabetes, controlled hypertension, obesity ASA 3: a patient with a severe systemic disease that limits activity (angina, COPD, prior Myocardial infarction) ASA 4: a patient with an incapacitating disease that is a constant threat to life (CHF, renal failure) ASA 5: a moribund patient not expected to survive 24 hrs. (ruptured aneurysm) ASA 6: a declared brain- patient whose organs are being harvested. For emergent operations, add the letter E after the classification Mallampati Classification Grade 3 Sedation Plan Analgesia, Amnesia, Plan communicated to team members, Discussed options with patient/fam, Discussed risks with patient/fam The patient is an appropriate candidate to undergo the planned procedure, sedation, and anesthesia. The patient immediately re-assessed prior to indication. JOCELYNN JOHNSON MD Feb 06, 2022 09:37
--- NOTE | 2022-02-06 09:37 | Consultation-Cardiology ---
HPI-Cardiology Cardiology Consultation Date of Consultation 02/06/22 Date of Admission Time Seen by Provider: 09:34 Indication: Chest pain HPI 46 years old gentleman with strong family history of heart disease, history of hypertension and hyperlipidemia. Started to have chest pain retrosternal dull in nature persistent lasted for about 6 hours, came into the emergency room and reported relieved with nitroglycerin. Patient was noted to have elevation in troponin level. On my evaluation was laying down comfortably in bed, denied any active pain. Home Medications & Allergies Allergies: Coded Allergies: No Known Drug Allergies (Unverified , 01/23/20) Home Medication List Reviewed: Yes NDH-Fvqnzc-Wadyep Hx Patient Social History Marital Status: Employed/Student: employed Smoking Status: Former Smoker Type Used: Cigarettes 2nd Hand Smoke Exposure: Yes Recent Hopitalizations: No Have you traveled recently?: No Alcohol Use?: Yes Past Medical History Discussed below Family Medical History Significant Family History: Heart Disease, CAD Under 55 Years Old, CAD Over 55 Years Old Review of Systems-General Review of Systems Constitutional: see HPI; No chills, No fever EENTM: see HPI, no symptoms reported Respiratory: no symptoms reported, see HPI Cardiovascular: see HPI, chest pain; No edema, No Hx of Intervention, No palpitations, No syncope, No vascular heart diseas, No other Gastrointestinal: no symptoms reported, see HPI Genitourinary: no symptoms reported, see HPI Musculoskeletal: No back pain, No muscle pain Skin: No change in color, No lesions, No rash Psychiatric/Neurological: No Symptoms Reported All Other Systems Reviewed Negative Unless Noted: Yes Reviewed Test Results Reviewed Test Results Lab Laboratory Tests Test 02/05/22 20:02 02/06/22 04:46 Range/Units White Blood Count 11.7 H 4.3-11.0 10^3/uL Red Blood Count 4.98 4.30-5.52 10^6/uL Hemoglobin 15.2 13.3-17.7 g/dL Hematocrit 47 40-54 % Mean Corpuscular Volume 94 80-99 fL Mean Corpuscular Hemoglobin 31 25-34 pg Mean Corpuscular Hemoglobin Concent 33 32-36 g/dL Red Cell Distribution Width 15.9 H 10.0-14.5 % Platelet Count 263 130-400 10^3/uL Mean Platelet Volume 10.3 9.0-12.2 fL Immature Granulocyte % (Auto) 0 % Neutrophils (%) (Auto) 58 42-75 % Lymphocytes (%) (Auto) 34 12-44 % Monocytes (%) (Auto) 5 0-12 % Eosinophils (%) (Auto) 2 0-10 % Basophils (%) (Auto) 1 0-10 % Neutrophils # (Auto) 6.7 1.8-7.8 10^3/uL Lymphocytes # (Auto) 4.0 1.0-4.0 10^3/uL Monocytes # (Auto) 0.6 0.0-1.0 10^3/uL Eosinophils # (Auto) 0.3 0.0-0.3 10^3/uL Basophils # (Auto) 0.1 0.0-0.1 10^3/uL Immature Granulocyte # (Auto) 0.0 0.0-0.1 10^3/uL Prothrombin Time 12.1 L 12.2-14.7 SEC INR Comment 0.9 0.8-1.4 Activated Partial Thromboplast Time 29 24-35 SEC Sodium Level 141 135-145 MMOL/L Potassium Level 3.6 3.6-5.0 MMOL/L Chloride Level 107 98-107 MMOL/L Carbon Dioxide Level 23 21-32 MMOL/L Anion Gap 11 5-14 MMOL/L Blood Urea Nitrogen 9 7-18 MG/DL Creatinine 1.14 0.60-1.30 MG/DL Estimat Glomerular Filtration Rate 79 BUN/Creatinine Ratio 8 Glucose Level 113 H 70-105 MG/DL Calcium Level 8.8 8.5-10.1 MG/DL Corrected Calcium 9.0 8.5-10.1 MG/DL Magnesium Level 1.7 1.6-2.4 MG/DL Total Bilirubin 0.2 0.1-1.0 MG/DL Aspartate Amino Transf (AST/SGOT) 41 H 5-34 U/L Alanine Aminotransferase (ALT/SGPT) 46 0-55 U/L Alkaline Phosphatase 87 40-136 U/L Myoglobin 35.7 10.0-92.0 NG/ML Troponin I 0.204 H <0.028 NG/ML Total Protein 7.0 6.4-8.2 GM/DL Albumin 3.8 3.2-4.5 GM/DL Triglycerides Level 376 H <150 MG/DL Cholesterol Level 247 H < 200 MG/DL LDL Cholesterol Direct 188 H 1-129 MG/DL VLDL Cholesterol 75 H 5-40 MG/DL HDL Cholesterol 42 40-60 MG/DL Physical Exam Physical Exam Vital Signs Vital Signs - First Documented 02/05/22 02/05/22 20:02 23:29 Temp 36.7 Pulse 73 Resp 18 B/P (MAP) 170/114 (132) Pulse Ox 97 O2 Delivery Room Air Capillary Refill : Less Than 3 Seconds Height, Weight, BMI Height: '" Weight: lbs. oz. kg; 33.64 BMI Method: General Appearance: No Apparent Distress, WD/WN Eyes: Bilateral Eye Normal Inspection, Bilateral Eye PERRL, Bilateral Eye EOMI HEENT: PERRL/EOMI, Pharynx Normal Neck: Non Tender, Supple Respiratory: Lungs Clear, Normal Breath Sounds Cardiovascular: Regular Rate, Rhythm, No Murmur Gastrointestinal: Non Tender, Soft Back: Normal Inspection, No CVA Tenderness, No Vertebral Tenderness Extremity: Normal Range of Motion, Non Tender Neurologic/Psychiatric: Alert, Oriented x3 Skin: Normal Color, Warm/Dry Lymphatic: No Adenopathy A/P-Cardiology Admission Diagnosis Chest pain Non-ST elevation myocardial infarction Hypertension Hyperlipidemia Assessment/Plan Chest pain, unstable angina, mild elevation in troponin Non-ST elevation myocardial infarction, multiple risk factors for coronary artery disease, planning to proceed with cardiac catheterization possible PTCA History of cardiomyopathy, left ventricular systolic dysfunction with ejection fraction 45 to 50%. History of mild left ventricular diastolic dysfunction. Maintained on losartan and metoprolol. Followed by Dr. Luis Hypertension, restarting home medication monitor blood pressure Hyperlipidemia, monitor lipids History of gastroesophageal reflux disease with esophagitis Obesity, BMI 33 Increased risk for sleep apnea Strong family history of heart disease with multiple family members with premature coronary artery disease Clinical Quality Measures AMI/AHF: ASA po Prior to arrival: Yes (81 mg) JOCELYNN JOHNSON MD Feb 06, 2022 09:37
[2022-02-06] MEDS ORDERED: NS IV 1000 ML 1,000 ML ONE (09:50)
[2022-02-06] MEDS ORDERED: LOSA100T57 PO (10:01)
[2022-02-06] MEDS ORDERED: GABA300T24 PO (10:01)
[2022-02-06] MEDS ORDERED: MELO15TA39 PO (10:01)
[2022-02-06] MEDS ORDERED: ASPI-1238 PO (10:01)
[2022-02-06] MEDS ORDERED: BACL10TA PO (10:01)
[2022-02-06] MEDS ORDERED: LOSA50TA63 PO (10:01)
[2022-02-06] MEDS ORDERED: NAPR-915 PO (10:01)
[2022-02-06] MEDS ORDERED: MTP100TCR PO (10:01)
[2022-02-06] MEDS ORDERED: OMEP20TA56 PO (10:01)
[2022-02-06] MEDS ORDERED: TICAGRELOR 90 MG TABLET (BRILINTA) PO ONE (10:24)
[2022-02-06] MEDS ORDERED: ASPIRIN 325 MG (5 GR) TABLET ONE (10:24)
--- NOTE | 2022-02-06 10:35 | Cardiac Cath Report ---
Cardiac Cath Report Physician (s)/Tactical Air Control Party Manager (s) Physician JOCELYNN JOHNSON MD Pre-Procedure Diagnosis Pre-Procedure Diagnosis: NSTMI Post-Procedure Note Procedure Start Date: Feb 06, 2022 Name of Procedure: Left heart catheterization Stenting to the right coronary artery Findings/Procedure Note PROCEDURE NOTE: 46-year-old gentleman with strong family history of heart disease, hypertension hyperlipidemia, admitted with acute chest pain, troponin elevation. Cardiac catheterization was advised. After explaining the procedure to the patient, all pros and cons were explained, all questions were answered. The patient signed the consent and then he was placed on the cardiac catheterization laboratory. Groin was prepped SL fashion local anesthesia was used. Sheath placed in the right radial artery, [place] catheter was advanced to the left ventricular cavity, pressure was measured, engage the right and left coronary system, angiogram was done. Patient received a total of 7000 units of heparin, Gayathri right guide was advanced to the right coronary artery, patient has 90% stenosis in the distal right coronary artery, BMW wire was advanced then predilatation with 3.0 balloon then I proceeded with deployment of skypoint stent 4 x 18 mm expanded to 4.14 mm with excellent results At the end of the procedure the sheath was removed. Vascular band was used FINDINGS: Hemodynamics LV 98/10, end-diastolic pressure of 10 Aorta 115/79 mean of 95 ANATOMY: Left Main is free of obstructive disease Left Anterior Descending has mild disease nonobstructive disease, 10 to 20% Left Circumflex has mild irregularity no significant obstructive disease Right Coronary Artery is dominant artery with 90% stenosis in the distal right coronary artery, successful balloon angioplasty then deployment of skypoint stent 4 x 18 mm expanded to 4.15 mm under 15 zohra with excellent results. No residual stenosis LV Gram was not done, pressure was measured CONCLUSION: 1. 90% stenosis in the distal right coronary artery with successful deployment of skypoint stent followed by 18 mm expanded to 4.15 mm with excellent results 3. Normal left ventricular end-diastolic pressure 2. Otherwise mild disease in the LAD and circumflex artery nonobstructive disease DISCUSSION AND RECOMMENDATION: Patient was started on aspirin and Brilinta, started on Lipitor 40 mg daily, restart losartan and add beta-blockers and evaluate tolerance and response Anesthesia Type: Conscious Sedation Estimated blood loss (mL): 15 ml Contrast Amount: 49 ml Total Radiation Dose: 634 mGy Post-Procedure Diagnosis Post-operative diagnosis: Non-ST elevation myocardial infarction Coronary artery disease Hypertension Hyperlipidemia Family history of premature coronary artery disease JOCELYNN JOHNSON MD Feb 06, 2022 10:35
[2022-02-06] MEDS: ENOXAPARIN 100 MG/1 ML (LOVENOX) SYR SC SCH ×2 (11:35→22:01)
--- NOTE | 2022-02-06 12:49 | History & Physical ---
History of Present Illness History of Present Illness Reason for visit/HPI This is a 46 year old male with a history of HTN, hyperlipidemia and family history of CAD who presented to the emergency room with substernal chest pain as well as elevated blood pressure. He was found to have an elevated troponin-I at 0.204 and his pain was relieved by nitro. He was admitted to cardiac stepdown with cardiology consultation and underwent cardiac catheterization this morning and was found to have a 90% stenosis in his RCA. This was succesfully balloon angioplastied with stent deployment. He is currently resting with no further pain and his blood pressure is much improved. Date of Admission Feb 05, 2022 at 23:05 Date Seen by a Provider: Feb 06, 2022 Time Seen by a Provider: 12:44 I consulted on this patient on 02/06/22 12:44 Attending Physician Juan Carlos Gupta DO Admitting Physician Admitting Physician: Juan Carlos Gupta DO Attending Physician: Juan Carlos Gupta DO Consult Allergies and Home Medications Allergies Coded Allergies: No Known Drug Allergies (Unverified , 01/23/20) Patient Home Medication List Home Medication List Reviewed: Yes Aspirin (Aspirin EC) 81 Mg Tablet.dr, 81 MG PO DAILY, (Reported) Entered as Reported by: BALA DESOUZA on 02/06/221000 Last Action: Reviewed Baclofen (Baclofen) 10 Mg Tablet, 10 MG PO QID, (Reported) Entered as Reported by: BALA DESOUZA on 02/06/221000 Last Action: Reviewed Gabapentin (Gralise) 300 Mg Tab.er.24h, 300 MG PO TID, (Reported) Entered as Reported by: BALA DESOUZA on 02/06/221000 Last Action: Reviewed Losartan Potassium (Losartan Potassium) 100 Mg Tablet, 100 MG PO DAILY, (Reported) Entered as Reported by: BALA DESOUZA on 02/06/221000 Last Action: Continued Meloxicam (Meloxicam) 15 Mg Tablet, 15 MG PO DAILY, (Reported) Entered as Reported by: BALA DESOUZA on 02/06/221000 Last Action: Reviewed Metoprolol Succinate (Metoprolol Succinate) 100 Mg Tab.er.24h, 100 MG PO BID, (Reported) Entered as Reported by: BALA DESOUZA on 02/06/221000 Last Action: Continued Naproxen (Naproxen) 500 Mg Tablet, 500 MG PO DAILY, (Reported) Entered as Reported by: BALA DESOUZA on 02/06/22 100 Last Action: Reviewed Discontinued Medications Amlodipine Besylate (Norvasc) 5 Mg Tablet, 5 MG PO DAILY Discontinued Reason: No Longer Taking Prescribed by: BRENNA RIBEIRO on 01/23/20 1748 Last Action: Discontinued Losartan Potassium (Losartan Potassium) 50 Mg Tablet, 50 MG PO DAILY, (Reported) Discontinued Reason: No Longer Taking Entered as Reported by: BALA DESOUZA on 02/06/22 100 Last Action: Discontinued Naproxen (Naprosyn) 500 Mg Tablet, 500 MG PO BID Discontinued Reason: No Longer Taking Prescribed by: DIANDRA HERRERA on 01/25/22 170 Last Action: Discontinued Naproxen Sodium (Anaprox Ds) 550 Mg Tablet, 550 MG PO BID PRN Discontinued Reason: No Longer Taking Prescribed by: DOROTHY GASTON on 11/12/10 2331 Last Action: Discontinued Omeprazole (Omeprazole) 20 Mg Tablet.dr, 20 MG PO DAILY, (Reported) Entered as Reported by: BALA DESOUZA on 02/06/221000 Last Action: Discontinued Past [id number] Hx Patient Social History Marrital Status: Employed/Student: employed Tobacco Use?: No Tobacco type used: Cigarettes Smoking Status: Former Smoker Use of E-Cig and/or Vaping dev: No Substance use?: No Alcohol Use?: Yes Alcohol type: Beer, Wine Alcohol Frequency: Couple times a week Pt feels they are or have been: No Immunizations Up To Date First/Initial COVID19 Vaccinat: YES Second COVID19 Vaccination Dar: YES Tetanus Booster (TDap): More Than 5 Years Seasonal Allergies Seasonal Allergies: No Current Status Advance Directives: Yes Advance Directive Location: Home Communicates: Verbally Primary Language: [place]an Preferred Spoken Language: [place]an Is interpretation needed?: No Sensory deficits: Hearing impairment Implanted or Applied Medical D: None Past Medical History Surgeries: Orthopedic High Cholesterol, Hypertension Family Medical History Reviewed Nursing Family Hx Heart Disease, CAD Under 55 Years Old, CAD Over 55 Years Old Review of Systems Constitutional: weakness EENTM: No see HPI, No no symptoms reported, No ear discharge, No hearing loss, No ear pain, No blurred vision, No double vision, No eye pain, No tearing, No vision loss, No dental problems, No hoarseness, No mouth pain, No mouth swelling, No epistaxis, No nose congestion, No nose pain, No throat pain, No throat swelling, No other Respiratory: No no symptoms reported, No see HPI, No cough, No dyspnea on exertion, No hemoptysis, No orthopnea, No phlegm, No short of breath, No stridor, No wheezing, No other Cardiovascular: chest pain Gastrointestinal: No RUQ, No LUQ, No RLQ, No LLQ, No no symptoms reported, No see HPI, No abdominal pain, No constipation, No diarrhea, No dysphagia, No hematemesis, No heartburn, No jaundice, No loss of appetite, No melena, No nausea, No vomiting, No other Genitourinary: No no symptoms reported, No see HPI, No decreased output, No discharge, No dysuria, No frequency, No hematuria, No hesitancy, No incontinence, No nocturia, No pain, No other Musculoskeletal: back pain, joint pain Skin: No no symptoms reported, No see HPI, No change in color, No change in hair/nails, No dryness, No hx of skin cancer, No lesions, No lumps, No pruritus, No rash, No other Psychiatric/Neurological: Weakness Physical Exam Vital Signs Vital Signs - First Documented 02/05/22 02/05/22 20:02 23:29 Temp 36.7 Pulse 73 Resp 18 B/P (MAP) 170/114 (132) Pulse Ox 97 O2 Delivery Room Air Capillary Refill : Less Than 3 Seconds Height, Weight, BMI Height: '" Weight: lbs. oz. kg; 33.64 BMI Method: General Appearance: No Apparent Distress HEENT: Normal ENT Inspection Neck: Supple Respiratory: Lungs Clear Cardiovascular: Regular Rate, Rhythm Gastrointestinal: Normal Bowel Sounds, Non Tender, Soft Rectal: Deferred Back: No CVA Tenderness Extremity: Non Tender, No Calf Tenderness, No Pedal Edema Neurologic/Psychiatric: Alert, Oriented x3 Skin: Warm/Dry Comments Laboratory Tests 02/05/22 20:02: White Blood Count 11.7H, Red Blood Count 4.98, Hemoglobin 15.2, Hematocrit 47, Mean Corpuscular Volume 94, Mean Corpuscular Hemoglobin 31, Mean Corpuscular Hemoglobin Concent 33, Red Cell Distribution Width 15.9H, Platelet Count 263, Mean Platelet Volume 10.3, Immature Granulocyte % (Auto) 0, Neutrophils (%) (Auto) 58, Lymphocytes (%) (Auto) 34, Monocytes (%) (Auto) 5, Eosinophils (%) (Auto) 2, Basophils (%) (Auto) 1, Neutrophils # (Auto) 6.7, Lymphocytes # (Auto) 4.0, Monocytes # (Auto) 0.6, Eosinophils # (Auto) 0.3, Basophils # (Auto) 0.1, Immature Granulocyte # (Auto) 0.0, Prothrombin Time 12.1L, INR Comment 0.9, Activated Partial Thromboplast Time 29, Sodium Level 141, Potassium Level 3.6, Chloride Level 107, Carbon Dioxide Level 23, Anion Gap 11, Blood Urea Nitrogen 9, Creatinine 1.14, Estimat Glomerular Filtration Rate 79, BUN/Creatinine Ratio 8, Glucose Level 113H, Calcium Level 8.8, Corrected Calcium 9.0, Magnesium Level 1.7, Total Bilirubin 0.2, Aspartate Amino Transf (AST/SGOT) 41H, Alanine Aminotransferase (ALT/SGPT) 46, Alkaline Phosphatase 87, Myoglobin 35.7, Troponin I 0.204H, Total Protein 7.0, Albumin 3.8 02/06/22 04:46: Triglycerides Level 376H, Cholesterol Level 247H, LDL Cholesterol Direct 188H, VLDL Cholesterol 75H, HDL Cholesterol 42 Assessment/Plan Assessment and Plan 1. Acute NonSTEMI--admitted with cardiac cath and angioplasty with stent placement to RCA 2. Hypertension--stable, on metoprolol and losartan 3. Hyperlipidemia--on atorvastatin 4. Tobacco abuse--smoking cessation Admission Diagnosis Admission Status: Inpatient Order (span 2 midnights) Reason for Inpatient Admission: Had stent placement so will stay another night Clinical Quality Measures AMI/AHF: ASA po Prior to arrival: Yes (81 mg) JUAN CARLOS GUPTA DO Feb 06, 2022 12:49
[2022-02-06] MEDS ORDERED: LOSARTAN 100 MG (COZAAR) TABLET PO NR (15:45)
[2022-02-06] MEDS: meTOprolol SUCCINATE 100 MG (TOPROL XL) TAB PO SCH (20:27)
[2022-02-06] MEDS: TICAGRELOR 90 MG TABLET (BRILINTA) PO SCH (20:28)
[2022-02-07 04:00] VITALS: BP 151/93
[2022-02-07] MEDS ORDERED: ATOR40TA PO (05:58)
[2022-02-07] MEDS ORDERED: PANT40TA52 PO (05:58)
[2022-02-07] MEDS ORDERED: TICA90TA PO (05:58)
--- NOTE | 2022-02-07 05:58 | Discharge Inst-Post CATH ---
Discharge Inst-CATH/EP Problems Reviewed?: Yes Post Cardiac Cath/EP D/C Inst Follow Up/Plan Appointment with Dr Agarwal in 2-4 weeks <b>CARDIAC CATH/EP PROCEDURE DISCHARGE INSTRUCTIONS</b> ACTIVITY * Go Home directly and rest. * Limit activity of the leg (or wrist if it was used) for 7 days including aerobics, swimming, jogging, bicycling, etc. * Restrict stair-climbing for 7 days if possible, if not, climb up with your non-cath leg, then bring together on the same step. * Avoid lifting, pushing, pulling or excessive movement of the affected extremity for 7 days. * Customary sexual activity may be resumed after 2 days-use caution not to use a position that strains or causes pain to the affected extremity. * No driving for 24 hours. * NO SMOKING. * Avoid straining for bowel movements for 7 days. * Gentle walking on level ground is allowed. * Returning to work will depend on the type of procedure and the results. Your doctor will discuss this with you. CALL YOUR DOCTOR FOR ANY OF THE FOLLOWING: *If bleeding from the puncture site occurs- Apply gentle pressure to site with clean cloth and call your doctor or EMS. * If a knot or lump forms under the skin, increases in size, or causes pain. * If bruising appears to be worsening or moving further down your leg instead of disappearing. * Temperature above 101 F. CARE OF YOUR GROIN INCISION; * Bruising or purple discoloration of the skin near the puncture site is common. * You may shower only, no bathtub bathing for 5 days. Be careful to avoid slipping as your leg may feel stiff. * If a closure device was used on your femoral artery, please see the attached guide regarding care of the device and your leg. * Leave dressing on FOR 24 hours. CARE OF YOUR WRIST INCISION; * Bruising or purple discoloration of the skin near the puncture site is common. * You may shower. * DO NOT submerge wrist. * Leave dressing on FOR 24 hours. JOCELYNN JOHNSON MD Feb 07, 2022 05:58
[2022-02-07] MEDS: NS IV 1000 ML 1,000 ML IV SCH (07:00)
[2022-02-07 07:29] VITALS: BP 151/93
[2022-02-07 07:30] VITALS: BP 149/110
--- NOTE | 2022-02-07 07:43 | Cardiology Progress Note ---
Subjective Date Seen by Provider: Feb 07, 2022 Time Seen by Provider: 07:42 Subjective/Events-last exam Patient was seen at bedside, laying down comfortably, feeling better. Review of Systems General: No Chills, No Night Sweats, No Fatigue, No Malaise, No Appetite, No Other HEENT: No Head Aches, No Visual Changes, No Eye Pain, No Ear Pain, No Dysphasia, No Sinus Congestion, No Post Nasal Drip, No Sore Throat, No Other Pulmonary: No Dyspnea, No Cough, No Pleuritic Chest Pain, No Other Cardiovascular: No: Chest Pain, Palpitations, Orthopnea, Paroxysmal Noc. Dyspnea, Edema, Lt Headedness, Other Objective-Cardiology Exam Last Set of Vital Signs Vital Signs 02/07/22 07:30 Temp 35.5 Pulse 66 Resp 26 B/P (MAP) 149/110 (123) Pulse Ox 95 O2 Delivery Room Air I&O Intake and Output 02/07/22 00:00 Intake Total 3640 ml Output Total 900 ml Balance 2740 ml Intake Oral 1640 ml IV Total 2000 ml Output Urine Total 900 ml # Voids 4 General: Alert, Oriented X3, Cooperative HEENT: Atraumatic, PERRLA Neck: Supple, No JVD, No Thyromegaly Lungs: Clear to Auscultation, Normal Air Movement Heart: Regular Rate, Normal S1, Normal S2, No Murmurs Abdomen: Normal Bowel Sounds, Soft, No Tenderness, No Hepatosplenomegaly, No Masses Extremities: No Clubbing, No Cyanosis, No Edema, Normal Pulses, No Tenderness/Swelling Skin: No Rashes, No Breakdown, No Significant Lesion Neuro: Normal Gait, Normal Speech, Strength at 5/5 X4 Ext, Normal Tone, Sensation Intact Psych/Mental Status: Mental Status NL, Mood NL A/P-Cardiology Admission Diagnosis Chest pain Non-ST elevation myocardial infarction Hypertension Hyperlipidemia Assessment/Plan Chest pain, unstable angina, mild elevation in troponin Non-ST elevation myocardial infarction, multiple risk factors for coronary artery disease Status post cardiac catheterization and stenting to the right coronary artery using ernestine point 4 x 18 mm with excellent results. Coronary artery disease status post non-ST elevation myocardial infarction Cardiac catheterization done on February 06, 2022 with deployment of ernestine point stent 4 x 18 mm expanded to 4.18 mm with excellent results. History of cardiomyopathy, left ventricular systolic dysfunction with ejection fraction 45 to 50%. History of mild left ventricular diastolic dysfunction. Maintained on losartan and metoprolol. Followed by Dr. Luis Hypertension, restarting home medication monitor blood pressure Hyperlipidemia, monitor lipids History of gastroesophageal reflux disease with esophagitis Obesity, BMI 33 Increased risk for sleep apnea Strong family history of heart disease with multiple family members with premature coronary artery disease Okay for discharge and follow-up as an outpatient continue on aspirin and Brilinta JOCELYNN JOHNSON MD Feb 07, 2022 07:43
[2022-02-07] MEDS: TICAGRELOR 90 MG TABLET (BRILINTA) PO SCH (08:21)
[2022-02-07] MEDS: meTOprolol SUCCINATE 100 MG (TOPROL XL) TAB PO SCH (08:21)
[2022-02-07] MEDS ORDERED: LOSARTAN 100 MG (COZAAR) TABLET PO SCH (09:00)
[2022-02-07] MEDS ORDERED: ASPIRIN E.C. 81 MG (ECOTRIN) TAB PO SCH (09:00)
[2022-02-07] MEDS ORDERED: PANTOPRAZOLE 40 MG (PROTONIX) TAB PO SCH (09:00)
[2022-02-07] MEDS: ENOXAPARIN 100 MG/1 ML (LOVENOX) SYR SC SCH (11:00)
[2022-02-07 11:54] VITALS: BP 154/111
[2022-02-07] MEDS ORDERED: AMLO-250 PO (12:47)
== END 2022-02-07 12:47 | disposition home or self-care (01) ==
LOC: EDUNIT# 19:50 → ER 19:51 → CSD 23:05 → UNDOADMOB 23:05 → CSD 23:50 → UNDODISOB 02-07 12:47
PROVIDERS: ADMIT Family Medicine; ATTEND Family Medicine
DX: I25.110 Atherosclerotic heart disease of native coronary artery with unstable angina pectoris (principal); I21.4 Non-ST elevation (NSTEMI) myocardial infarction; I10 Essential (primary) hypertension; E78.5 Hyperlipidemia, unspecified; E66.9 Obesity, unspecified; Z87.891 Personal history of nicotine dependence; Z68.34 Body mass index [BMI] 34.0-34.9, adult; Z87.19 Personal history of other diseases of the digestive system; Z79.899 Other long term (current) drug therapy; Z28.311 Partially vaccinated for COVID-19; Z79.82 Long term (current) use of aspirin
CPT/HCPCS: 36415; 71045; 80053; 80061; 83735; 83874; 84484; 85025; 85610; 85730; 93005; 93041; 93458; 96361; 96372

== ENCOUNTER 2022-02-27 08:27 | Outpatient (RCR) | payer BC ==
[~2022-02-27 08:27] MED LIST changes: +AMLO-250 PO; +ASPI-1238 PO; +ATOR40TA PO; +BACL10TA PO; +GABA300T24 PO; +LOSA100T57 PO; +LOSA50TA63 PO; +MELO15TA39 PO; +MTP100TCR PO; +NAPR-915 PO; +OMEP20TA56 PO; +PANT40TA52 PO; +TICA90TA PO
== END 2022-03-01 | disposition home or self-care (01) ==
PROVIDERS: ATTEND Neurological Surgery
DX: M54.50 Low back pain, unspecified (principal); G89.29 Other chronic pain; I10 Essential (primary) hypertension

== ENCOUNTER → 2022-03-29 | Outpatient (CLI) | payer BC | LOC: CARD 13:30 | PROVIDERS: ATTEND Internal Medicine Cardiovascular Disease | DX: I42.9 Cardiomyopathy, unspecified (principal) ==

== ENCOUNTER 2022-03-31 08:52 | Outpatient (RCR) | payer BC | END 2022-04-01 | disposition home or self-care (01) | PROVIDERS: ATTEND Neurological Surgery | DX: M54.59 Other low back pain (principal); G89.29 Other chronic pain; Z74.09 Other reduced mobility; R29.3 Abnormal posture; M62.81 Muscle weakness (generalized) ==

== ENCOUNTER 2022-04-14 09:25 | Outpatient (RCR) | payer BC | END 2022-05-02 | disposition home or self-care (01) | PROVIDERS: ATTEND Neurological Surgery | DX: M54.59 Other low back pain (principal); G89.29 Other chronic pain ==

== ENCOUNTER 2022-05-12 08:28 | Outpatient (RCR) | payer BC | END 2022-05-30 | disposition home or self-care (01) | PROVIDERS: ATTEND Neurological Surgery | DX: M54.50 Low back pain, unspecified (principal) ==